=== PATIENT | female | born 1945 ===

== ENCOUNTER 2017-08-29 19:13 | Inpatient (IN) | payer MEDICARE, OTHER ==
[~2017-08-29] VITALS: Ht 165.1 cm; Wt 72.6 kg
[2017-08-29 20:14] LABS: BASOPHILS % (AUTO) 0.4 % (0.0-2.0); EOSINOPHILS # (AUTO) 0.2 K/uL (0.0-0.7); EOSINOPHILS % (AUTO) 3.4 % (0.0-7.0); HEMATOCRIT 34.9 % (37-47); HEMOGLOBIN 11.4 G/DL (12.0-16.0); LYMPHOCYTES # (AUTO) 1.9 K/UL (0.8-4.8); MEAN CORPUSCULAR HEMOGLOBIN 33.6 UUG (27.0-31.0); MEAN CORPUSCULAR HGB CONC 33 g/dL (32.0-37.0); MEAN CORPUSCULAR VOLUME 103.3 FL (81.0-99.0); MONOCYTES # (AUTO) 0.6 K/UL (0.1-1.30); MONOCYTES % (AUTO) 9.5 % (0.0-11.0); NEUTROPHILS # (AUTO) 3.9 K/UL (1.8-8.9); NEUTROPHILS % (AUTO) 57.7 % (38.5-71.5); PLATELET COUNT (AUTO) 183 K/UL (150-450); RED BLOOD CELL COUNT(AUTO) 3.38 MIL/UL (4.2-5.4); WHITE BLOOD COUNT (AUTO) 6.6 K/UL (4.0-11.2)
[2017-08-29] MEDS ORDERED: LORAZEPAM 2 MG/1 ML VIAL IV ONE (20:15)
[2017-08-29 20:24] LABS: CARBON DIOXIDE 34 mmol/L (21-32); CHLORIDE 108 mmol/L (98-107); CREATININE 0.9 mg/dL (0.6-1.3); GLUCOSE 154 mg/dL (74-106); POTASSIUM 4.4 mmol/L (3.5-5.1); UREA NITROGEN, BLOOD 28 mg/dL (7-18)
[2017-08-29] MEDS ORDERED: LORAZEPAM 2 MG/1 ML VIAL ONE (20:33)
[2017-08-29 20:37] LABS: ALANINE AMINOTRANSFERASE 12 U/L (14-59); ALKALINE PHOSPHATASE 72 U/L (50-136); ASPARTATE AMINOTRANSFERASE 12 U/L (15-37); BILIRUBIN,DIRECT 0.1 mg/dL (0.0-0.2); BILIRUBIN,TOTAL 0.3 mg/dL (0.2-1.0); TOTAL PROTEIN, SERUM 6.4 g/dL (6.4-8.2)
[2017-08-29] MEDS ORDERED: ACET-73 PO (20:41)
[2017-08-29] MEDS ORDERED: LORA0.5T PO (20:41)
[2017-08-29] MEDS ORDERED: BISA10SU12 RC (20:41)
[2017-08-29] MEDS ORDERED: SULF500T8 PO (20:41)
[2017-08-29] MEDS ORDERED: QUET200T PO (20:41)
[2017-08-29] MEDS ORDERED: ACET325T53 PO (20:41)
[2017-08-29] MEDS ORDERED: HYDR-3326 PO (20:41)
[2017-08-29] MEDS ORDERED: VALP250S3 PO (20:41)
[2017-08-29] MEDS ORDERED: METO-302 PO (20:41)
[2017-08-29] MEDS ORDERED: SPIR25TA4 PO (20:41)
[2017-08-29] MEDS ORDERED: [UNRECOGNIZED DRUG - CODE] PO (20:41)
[2017-08-29] MEDS ORDERED: MAGN400O6 PO (20:41)
[2017-08-29] MEDS ORDERED: CLOP75TA15 PO (20:41)
[2017-08-29] MEDS ORDERED: FURO40TA5 PO (20:41)
[2017-08-29] MEDS ORDERED: POTA10TA21 PO (20:41)
[2017-08-29] MEDS ORDERED: CALC-883 PO (20:41)
[2017-08-29] MEDS ORDERED: CALC500T3 PO (20:41)
[2017-08-29] MEDS ORDERED: MULT1TAB11 PO (20:41)
[2017-08-29] MEDS ORDERED: ATOR80TA PO (20:41)
[2017-08-29] MEDS ORDERED: THYR90TA12 PO (20:41)
[2017-08-29] MEDS ORDERED: THYR15TA9 PO (20:41)
[2017-08-29] MEDS ORDERED: NA P133E RC (20:41)
[2017-08-29 20:50] LABS: ABG BASE EXCESS 5.3 mmol/L; ABG HCO3 32.6 mmol/L; ABG PCO2 61.9 mmHg (35.0-45.0); ABG PH 7.339 (7.350-7.450); ABG PO2 94.7 mmHg (75.0-100.0); ABG SITE RIGHT RADIAL; ABG TOTAL HEMOGLOBIN 11.1 G/dL (12.0-16.0); COHb 2.4 % (0.5-1.5); MetHb 0.3 % (0.0-1.5); O2Hb 94.5 % (94.0-97.0); VENT MODE Nasal Cannula
[2017-08-29] MEDS ORDERED: HYDROMORPHONE 1 MG/1 ML DISP.SYRIN IV ONE (21:30)
[2017-08-29] MEDS ORDERED: HYDROMORPHONE 4 MG/1 ML DISP.SYRIN ONE (21:41)
[2017-08-29] MEDS: QUETIAPINE FUMARATE 200 MG TABLET PO SCH (22:15)
[2017-08-29] MEDS ORDERED: FLEET ENEMA 133 ML BOTTLE RC PRN (22:15)
[2017-08-29] MEDS ORDERED: HYDROMORPHONE 1 MG/1 ML DISP.SYRIN IV PRN (22:15)
[2017-08-29] MEDS ORDERED: ALBUTEROL SULFATE 2.5 MG/3 ML NEBU NEB PRN (22:15)
[2017-08-29] MEDS ORDERED: MAGNESIUM HYDROXIDE 30 ML LIQUID UDC PO PRN (22:15)
[2017-08-29] MEDS ORDERED: ACETAMINOPHEN 325 MG TABLET PO PRN ×2 (22:15)
[2017-08-29] MEDS ORDERED: BISACODYL 10 MG SUPP.RECT RC PRN (22:15)
[2017-08-29 23:00] VITALS: BP 130/64
[2017-08-29 23:17] LABS: VALPROIC ACID 15 ug/mL (50-100)
[2017-08-30] MEDS: LORAZEPAM 0.5 MG TABLET PO SCH ×4 (06:35→17:46)
[2017-08-30] MEDS ORDERED: LORAZEPAM 0.5 MG TABLET ONE (06:36)
[2017-08-30] MEDS: PANTOPRAZOLE SODIUM 40 MG TABLET.DR PO SCH (06:54)
[2017-08-30] MEDS ORDERED: PANTOPRAZOLE SODIUM 40 MG TABLET.DR PO ONE (07:05)
[2017-08-30 07:13] LABS: BASOPHILS % (AUTO) 0.4 % (0.0-2.0); EOSINOPHILS # (AUTO) 0.2 K/uL (0.0-0.7); EOSINOPHILS % (AUTO) 2.9 % (0.0-7.0); HEMOGLOBIN 12.1 G/DL (12.0-16.0); LYMPHOCYTES # (AUTO) 1.2 K/UL (0.8-4.8); LYMPHOCYTES % (AUTO) 18.5 % (20.5-51.5); MEAN CORPUSCULAR HEMOGLOBIN 33.2 UUG (27.0-31.0); MEAN CORPUSCULAR HGB CONC 32 g/dL (32.0-37.0); MONOCYTES # (AUTO) 0.5 K/UL (0.1-1.30); NEUTROPHILS # (AUTO) 4.8 K/UL (1.8-8.9); NEUTROPHILS % (AUTO) 71.2 % (38.5-71.5); PLATELET COUNT (AUTO) 189 K/UL (150-450); RED BLOOD CELL COUNT(AUTO) 3.65 MIL/UL (4.2-5.4); WHITE BLOOD COUNT (AUTO) 6.7 K/UL (4.0-11.2)
[2017-08-30 07:35] LABS: ALANINE AMINOTRANSFERASE 11 U/L (14-59); ALKALINE PHOSPHATASE 77 U/L (50-136); ASPARTATE AMINOTRANSFERASE 17 U/L (15-37); BILIRUBIN,TOTAL 0.3 mg/dL (0.2-1.0); CARBON DIOXIDE 32 mmol/L (21-32); CHLORIDE 108 mmol/L (98-107); CHOLESTEROL 168 mg/dL (<200); CREATININE 0.8 mg/dL (0.6-1.3); GLUCOSE 115 mg/dL (74-106); HDL CHOLESTEROL 52 mg/dL (40-60); MAGNESIUM 1.9 mg/dL (1.8-2.4); PHOSPHOROUS 3.1 mg/dL (2.5-4.9); POTASSIUM 4.5 mmol/L (3.5-5.1); TOTAL PROTEIN, SERUM 7.5 g/dL (6.4-8.2); TRIGLYCERIDES 81 MG/DL (30-150); UREA NITROGEN, BLOOD 26 mg/dL (7-18)
[2017-08-30 07:49] LABS: THYROID STIMULATING HORMONE 1.632 mIU/mL (0.358-3.740)
[2017-08-30] MEDS ORDERED: THYROID PORK 90 MG PO SCH (09:00)
[2017-08-30] MEDS ORDERED: THYROID PORK 15 MG PO SCH (09:00)
[2017-08-30] MEDS ORDERED: Medication Not On Formulary EA (Multivitamins W-Minerals (Multivitamin With Minerals) 1 PO SCH (09:00)
[2017-08-30] MEDS ORDERED: Medication Not On Formulary EA (Valproate Sodium (Valproic Acid) 500 MG) PO SCH (09:00)
[2017-08-30] MEDS: VALPROIC ACID 250 MG/5 ML LIQUID UDC PO SCH ×3 (09:30→17:46)
[2017-08-30] MEDS: FUROSEMIDE 40 MG TABLET PO SCH (09:31)
[2017-08-30] MEDS: CLOPIDOGREL 75 MG TABLET PO SCH (09:31)
[2017-08-30] MEDS: MULTIVIT, IRON, MIN NO. 8, FA TABLET PO SCH (09:31)
[2017-08-30] MEDS: CALCIUM CARB/VITAMIN D 500MG-200UNITS TABLET PO SCH (09:31)
[2017-08-30] MEDS: ASPIRIN EC 81 MG TABLET.DR PO SCH (09:32)
[2017-08-30 09:40] LABS: IRON, SERUM 57 ug/dL (50-175)
[2017-08-30] MEDS: SULFASALAZINE 500 MG TABLET PO SCH ×2 (09:43→17:46)
[2017-08-30 11:42] VITALS: BP 129/55
[2017-08-30] MEDS ORDERED: Z GUARD REMEDY PASTE 57 GM TUBE TOP PRN (18:00)
[2017-08-30 18:55] VITALS: BP 105/54
[2017-08-30] MEDS: HYDROCODONE/APAP 5-325MG TABLET PO PRN (19:31)
[2017-08-30] MEDS: Z GUARD REMEDY PASTE 57 GM TUBE TOP SCH (19:34)
[2017-08-30] MEDS: QUETIAPINE FUMARATE 200 MG TABLET PO SCH (19:57)
[2017-08-30] MEDS: ATORVASTATIN 40 MG TABLET PO SCH (19:57)
[2017-08-30 20:19] VITALS: BP 99/52
[2017-08-30] MEDS ORDERED: POTASSIUM CITRATE 10 MEQ PO SCH (21:00)
[2017-08-30] MEDS ORDERED: Medication Not On Formulary EA (Atorvastatin Calcium (Lipitor) 80 MG) PO SCH (21:00)
[2017-08-31] MEDS: LORAZEPAM 0.5 MG TABLET PO SCH ×4 (00:06→17:21)
[2017-08-31 05:17] VITALS: BP 124/52
[2017-08-31] MEDS: PANTOPRAZOLE SODIUM 40 MG TABLET.DR PO SCH (05:50)
[2017-08-31] MEDS: HYDROCODONE/APAP 5-325MG TABLET PO PRN ×2 (05:51→19:47)
[2017-08-31] MEDS ORDERED: THYROID 60 MG TABLET PO SCH ×2 (07:00)
[2017-08-31] MEDS: FUROSEMIDE 40 MG TABLET PO SCH (09:24)
[2017-08-31] MEDS: CALCIUM CARB/VITAMIN D 500MG-200UNITS TABLET PO SCH (09:24)
[2017-08-31] MEDS: MULTIVIT, IRON, MIN NO. 8, FA TABLET PO SCH (09:24)
[2017-08-31] MEDS: ASPIRIN EC 81 MG TABLET.DR PO SCH (09:24)
[2017-08-31] MEDS: VALPROIC ACID 250 MG/5 ML LIQUID UDC PO SCH ×3 (09:24→17:21)
[2017-08-31] MEDS: SULFASALAZINE 500 MG TABLET PO SCH ×2 (09:38→17:20)
[2017-08-31] MEDS: Z GUARD REMEDY PASTE 57 GM TUBE TOP SCH ×2 (09:45→21:40)
[2017-08-31 11:54] VITALS: BP 120/53
[2017-08-31] MEDS: CLOPIDOGREL 75 MG TABLET PO SCH (12:48)
[2017-08-31 15:50] VITALS: BP 97/49
[2017-08-31] MEDS ORDERED: CARVEDILOL 3.125 MG TABLET PO SCH (18:00)
[2017-08-31 19:00] VITALS: BP 117/71
[2017-08-31 20:17] VITALS: BP 117/71
[2017-08-31] MEDS: ATORVASTATIN 40 MG TABLET PO SCH (21:37)
[2017-08-31] MEDS: QUETIAPINE FUMARATE 200 MG TABLET PO SCH (21:37)
== END 2017-08-31 22:00 | DRG 917 ==
LOC: ER 19:20 → MEDSURG1 22:29 → MED 08-30 16:54
PROVIDERS: ADMIT Internal Medicine; ATTEND Internal Medicine
DX: T59.811A Toxic effect of smoke, accidental (unintentional), initial encounter (principal); J96.02 Acute respiratory failure with hypercapnia; I50.22 Chronic systolic (congestive) heart failure; I69.354 Hemiplegia and hemiparesis following cerebral infarction affecting left non-dominant side; D63.8 Anemia in other chronic diseases classified elsewhere; E78.5 Hyperlipidemia, unspecified; F03.90 Unspecified dementia, unspecified severity, without behavioral disturbance, psychotic disturbance, mood disturbance, and anxiety; G40.909 Epilepsy, unspecified, not intractable, without status epilepticus; I25.10 Atherosclerotic heart disease of native coronary artery without angina pectoris; I25.5 Ischemic cardiomyopathy; Z87.891 Personal history of nicotine dependence; I11.0 Hypertensive heart disease with heart failure; Y92.129 Unspecified place in nursing home as the place of occurrence of the external cause
CPT/HCPCS: 36415; 36600; 70030-TC; 71010; 80164; 83550; 83735; 84100; 84443; 85025; 93005; 93307; A4663; J1170; J2060